=== PATIENT | female | born 1990 | race African-American/Black ===

== ENCOUNTER 2017-07-01 16:38 | Emergency (ER) | payer SELFPAY ==
[~2017-07-01] VITALS: Ht 162.6 cm; Wt 75.0 kg
[2017-07-01 16:50] VITALS: BP 160/74; PULSE 129; RESP 16; TEMP 98.7; O2SAT 100
--- NOTE | 2017-07-01 19:33 | PD ---
HPI Chief Complaint: ENT Complaint Time Seen by Provider: 19:06 Travel History International Travel<30 days: No Contact w/Intl Traveler<30days: No Traveled to known affect area: No History of Present Illness HPI Patient comes in for evaluation of enlarged thyroid gland on the right ongoing for "several years". Patient reports associated swollen lymph nodes on the right for "years"as well. Patient denies being evaluated for this previously. Denies any weight loss, fevers, chest pain, palpitations, shortness of breath, dry mouth, nausea, vomiting, neck pain, difficulty swallowing, or change in size thyroid. Patient states she is in school was reading things and just got concerned. Patient denies any pain with this. Denies anything making it better or worse. History Past Medical Histgory Medical History: Denies Significant Hx Tetanus Vaccination: > 5 Years LMP: 06-04-18 Past Surgical History Surgical History: No Previous Surgery Social History Alcohol Use: Yes (OCC) Tobacco Use: Yes (2 CIGS QOD) Allergies-Medications (Allergen,Severity, Reaction): Coded Allergies: No Known Allergies (Unverified , 07/01/17) Reported Meds & Prescriptions Reported Meds & Active Scripts Active No Active Prescriptions or Reported Medications Review of Systems Except as stated in HPI: all other systems reviewed are Neg Physical Exam Narrative GENERAL: Well-developed, overly nourished, in no acute distress, and non-ill appearing. SKIN: Focused skin assessment warm and dry. HEAD: Atraumatic. Normocephalic. EYES: Pupils equal and round. EOMI. No scleral icterus. No injection or drainage. ENT: No nasal bleeding or discharge. Mucous membranes pink and moist. NECK: Trachea midline. Supple. No nuclear rigidity. Right incisor is palpable in the larger than the left. It is nontender and soft. CARDIOVASCULAR: Pulse rechecked at bedside found to be 84. RESPIRATORY: No accessory muscle use. No respiratory distress. MUSCULOSKELETAL: No obvious deformities. No clubbing. No cyanosis. No edema. Full range of motion. NEUROLOGICAL: Awake and alert. No obvious cranial nerve deficits. Motor grossly within normal limits. Normal speech. PSYCHIATRIC: Appropriate mood and affect; insight and judgment normal. Data Data Last Documented VS Vital Signs Date Time Temp Pulse Resp B/P (MAP) Pulse Ox O2 Delivery O2 Flow Rate FiO2 07/01/17 16:50 98.7 129 16 160/74 (471) 100 MDM Medical Screen Exam Complete: Yes Emergency Medical Condition: No Narrative Course History and physical exam findings are not consistent with an emergent medical condition. She was given the option of receiving additional care, but has declined. Therefore the appropriate counseling recommendations were discussed with the patient and she was instructed to follow-up with her primary care physician as soon as possible for reevaluation. Patient was also informed of community resources from which she can obtain additional care. She is agreeable and verbalizes an understanding of the proposed plan. The patient states she will immediately return to the emergency department if her current complaints do not improve, new symptoms arise, or emergent condition develops. Patient ambulated out of the emergency department without difficulty. Primary Impression: Encounter for medical screening examination Scripts No Active Prescriptions or Reported Meds Disposition: [facility]GO-ED USE ONLY Condition: Stable John Simpson Jul 01, 2017 19:32
== END 2017-07-01 19:24 | disposition left against medical advice (07) ==
LOC: PHED 16:38 → PHEFT 19:24
DX: E04.9 Nontoxic goiter, unspecified (principal)
CPT/HCPCS: 99281